=== PATIENT | male | born 1955 | race Caucasian/White ===

== ENCOUNTER 2020-08-11 01:48 | Emergency (ER) | payer BC ==
[2020-08-11] MEDS ORDERED: SODIUM CHLORIDE 0.9% 1000ML 1,000 ML IV STA (01:51)
--- NOTE | 2020-08-11 02:06 | Emergency Department Note ---
History of Present Illnes History of Present Illness Chief Complaint: Genitourinary History of Present Illness This is a 64 year old male arrives to the ED with complaints of urinary ret ention. Denies recent infectious symptoms such as fever, dysuria, rigors. Denies recent blunt back trauma or penile trauma. Denies colicky back/groin pain or history of nephro/urolithiasis. No recent sedation/analgesia, anticholinergic, opioid, TCA, sympathomimetic use. Nonsmoker. 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 Barbra MORGAN FOR PROSTATE ISSUES; PT STATES HE USUALLY HAS 700C URINE OUTPUT BY THIS TIME OF NIGHT; PT REPORTS SUPRAPUBIC PRESSURE; PT APPEARS UNCOMFORTABLE; V/S/S; BLADDER SCAN SHOWED 750CC RETAINED URINE. Historian: Patient Arrival Mode: Car Onset (how long ago): hour(s) Radiation: Reports non-radiation Severity: mild Onset quality: gradual Duration (how long): hour(s) Timing of current episode: constant Progression: worsening Context: Denies recent illness, Denies recent surgery Relieving factors: none Exacerbating factors: none Associated symptoms: Reports denies other symptoms Past Medical/Family History Physician Review I have reviewed the patient's past medical and family history. Any updates have been documented here. Past Medical History Recent Fever: No Clinical Suspicion of Infectio: No New/Unexplained Change in Ment: No Review of Systems Review of Systems Constitutional: Reports no symptoms EENTM: Reports no symptoms Cardiovascular: Reports no symptoms Respiratory: Reports no symptoms Gastrointestinal: Reports no symptoms Genitourinary: Reports as per HPI, Reports pain Musculoskeletal: Reports no symptoms Integumentary: Reports no symptoms Neurological: Reports no symptoms Psychological: Reports no symptoms Endocrine: Reports no symptoms Hematological/Lymphatic: Reports no symptoms Physical Exam Related Data Allergies: Coded Allergies: lisinopril (Verified Allergy, Unknown, 08/11/20) Triage Vital Signs Vital Signs Date Time Temp Pulse Resp B/P (MAP) Pulse Ox O2 Delivery O2 Flow Rate FiO2 08/11/20 01:48 78 20 145/105 100 Room Air Vital signs reviewed: Yes Physical Exam CONSTITUTIONAL Constitutional: Present well-developed, Present well-nourished HENT HENT: Present normocephalic, Present atraumatic, Present oropharynx clear/moist, Present nose normal HENT L/R: Present left ext ear normal, Present right ext ear normal EYES Eyes: Reports PERRL, Reports conjunctivae normal NECK Neck: Present ROM normal PULMONARY Pulmonary: Present effort normal, Present breath sounds normal CARDIOVASCULAR Cardiovascular: Present regular rhythm, Present heart sounds normal, Present capillary refill normal, Present normal rate GASTROINTESTINAL Abdominal: Present soft, Present nontender, Present bowel sounds normal GENITOURINARY Genitourinary: Present exam deferred SKIN Skin: Present warm, Present dry MUSCULOSKELETAL Musculoskeletal: Present ROM normal NEUROLOGICAL Neurological: Present alert, Present oriented x 3, Present no gross motor or sensory deficits PSYCHOLOGICAL Psychological: Present mood/affect normal, Present judgement normal Results Laboratory Lab results reviewed: Yes Imaging Imaging results reviewed: Yes Assessment & Plan Medical Decision Making MDM 64-year-old male arrives the ED with acute urinary retention. Bailey catheter changed at 1300 mL of urine output noted. Labwork reviewed no concerns of acute renal failure requiring hospital admission. All findings were discussed and relayed to Dr. Morgan patient's urologist who was in agreement with patient's discharge. Reassessment Reassessment with one day of acute urinary retention. Well appearing/nonseptic. Tolerating PO. ED Workup: UA, CBC, BMP ED Interventions: Catheter placement Patient exam and history not consistent with cauda equina, infectious etiology, constipation based retention/intraabdominal mass/AAA, trauma, nephro/urolithiasis, drug reaction, cancer. Disposition: Discharge with catheter placed to leg bag and urology follow up within 1 week. Strict return precautions and catheter care discussed. Assessment & Plan Final Impression: (1) Acute urinary retention Depart Disposition: HOME, SELF-CARE Last Vital Signs Date Time Temp Pulse Resp B/P (MAP) Pulse Ox O2 Delivery O2 Flow Rate FiO2 08/11/20 01:48 78 20 145/105 100 Room Air Medications in the ED Sodium Chloride 1,000 ml @ 0 mls/hr Q0M STAT IV ; Start 08/11/20 at 01:51; Stop 08/11/20 at 01:52 YUMIKO ANTONIO DO Aug 11, 2020 02:06
--- OUTSIDE RECORDS SUMMARY | 2020-08-11 02:14 | XMS REPORT | Continuity of Care Document ---
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 2018-12-02 00:00:00 [facility] Screening for prostate cancer Screening for prostate cancer Disease Active 2018-12-02 00:00:00 [facility] History of hepatitis C -SVR History of hepatitis C -SVR Disease Active 2016-12-31 00:00:00 [facility] Fatty liver Fatty liver Disease Active 2013-12-16 00:00:00 [facility] Obesity Obesity Disease Active 2013-12-16 00:00:00 [facility] Hemochromatosis Hemochromatosis Disease Active 2013-12-16 00:00:00 [facility] Hypertension Hypertension Disease Active 2013-12-16 00:00:00 [facility] Screening for endocrine/metabolic/immunity disorders S creening for endocrine/metabolic/immunity disorders Disease Active 2013-12-16 00:00:00 [facility] Allergies, Adverse Reactions, Alerts Allergy Name Allergy Type Status Severity Reaction(s) Onset Date Inacti ve Date Treating Clinician Comments Source Lisinopril Propensity to adverse reactions Active Othe r (See Comments) 2015-12-10 00:00:00 [facility] Social History Social Habit Start Date Stop Date Quantity Comments Source Sex Assigned At [facility] Tobacco use and exposure 2018-12-02 00:00:00 2018-12-02 00:00:00 Jason r used [facility] Alcohol intake 2017-02-08 00:00:00 2017-02-08 00:00:00 [facility] Sm[facility] Status Start Date Stop Date Source Never smoker [facility] Medications Ordered Medication Name Filled Medication Name Start Date Stop Da te Current Medication? Ordering Clinician Indication Dosage Frequency Signature (SIG) Comments Components Source tamsulosin (FLOMAX) 0.4 mg capsule 2018-11-22 00:00:00 Yes [facility] finasteride (PROSCAR) 5 mg tablet 2018-11-15 [facility]DIOVAN-HCT[facility] 80-12.5 mg per ta blet 2018-11-15 00:00:00 Yes [facility] sildenafil (VIAGRA) 100 MG tablet 2018-11-15 00:00[facility]00 [facility] 0.4 mg Cp24 24 hr capsule 2015-12-10 15:00:5 1 Yes .4mg QD Take 0.4 mg by mouth daily. [facility] valsartan (DIOVAN) 320 MG tablet 2015-12-10 15:00:51 Yes 320mg QD Take 320 mg by mouth daily. [facility] finasteride (PROSCAR) 5 mg tablet 2015-12-10 15:00:51 Yes 5mg QD Take 5 mg by mouth daily. [facility] valsartan-hydrochlorothiazide (DIOVAN-HCT) 320-25 mg per tab let 2015-12-10 15:00:51 Yes 1{tbl} QD Take 1 tablet by mouth daily. [facility] Procedures This patient has no known procedures. Plan of Care Planned Activity Planned Date Details Comments Source Future Scheduled Test 2020-05-05 00:00:00 INFLUENZA VACCINE [code = INFLUENZA VACCINE] [facility] Future Scheduled Test 2005 00:00:00 COLONOSCOPY SCREEN ING [code = COLONOSCOPY SCREENING] [facility] Future Scheduled Test 2005 00:00:00 SHINGLES VACCINES (#1) [code = SHINGLES VACCINES (#1)] [facility] Encounters Start Date/Time End Date/Time Encounter Type Admission Type Attendi [facility] Care Department Encounter ID Source 2020-08-10 14:04:38 2020-08-10 14:19:38 Office Visit Sil Betancourt [facility] [id number] Results This patient has no known results.
--- OUTSIDE RECORDS SUMMARY | 2020-08-11 02:14 | XMS REPORT | Clinical Summary ---
Author Author [facility] Organization [facility] Address Unknown Phone Unavailable Care Team Providers Care Violin Tutor Name Role Phone Prashant Valentin MD PCP Allergies No Known Active Allergies Medications End Date Status Medication Sig Dispensed Refills Start Date Active finasteride (PROSCAR) 5 0 mg tablet 9 Active tamsulosin (FLOMAX) 0.4 0 mg capsule 9 Active valsartan-hydrochlorothia 0 zide (DIOVAN-HCT) 80-12.5 9 mg per tablet Active sildenafil (VIAGRA) 100 0 MG tablet 9 Active Problems Problem Noted Date BPH with obstruction/lower urinary tract symptoms Screening for prostate cancer 12/02/2018 Surgical History Surgery Date Site/Laterality Comments TOTAL HIP ARTHROPLASTY Medical History Medical History Date Comments BPH (benign prostatic hyperplasia) Social History Date Tobacco Use Types Packs/Day Years Used Never Smoker Smokeless Tobacco: Never Used Drinks/Week oz/Week Comments Alcohol Use Yes Sex Assigned at Date Recorded Not on file Last Filed Vital Signs Not on file Plan of Treatment Health Maintenance Due Date Last Done Comments COLONOSCOPY SCREENING 2005 SHINGLES VACCINES (#1) 2005 INFLUENZA VACCINE 05/05/2020 Results Not on fileafter 08/11/2019 Insurance Type Payer Benefit Subscriber ID Effective Phone Address Plan / Dates Group PPO BCBS BCBS [id number] 2018- CHOICE Present PPO/HANANE VIERA PPO Guarantor Name Account Relation to Date of Phone Rocio kang Address Type Patient Bernardo Lawton Personal/F Self [id number] (Home) [place] [address] Advance Directives For more information, please contact: [phone] 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
--- OUTSIDE RECORDS SUMMARY | 2020-08-11 02:14 | XMS REPORT | Clinical Summary ---
Author [facility] Address Unknown Phone Unavailable Care Team Providers Care Structural Test Engineer Name Role Phone PCP Unavailable Allergies Comments Active Allergy Reactions Severity Noted Date Lisinopril Other (See 12/10/2015 Comments) Medications End Date Status Medication Sig Dispensed Refills Start Date Active tamsulosin (FLOMAX) 0.4 Take 0.4 mg 0 mg Cp24 24 hr capsule by mouth daily. Active valsartan (DIOVAN) 320 MG Take 320 mg 0 tablet by mouth daily. Active finasteride (PROSCAR) 5 Take 5 mg by 0 mg tablet mouth daily. Active valsartan-hydrochlorothia Take 1 tablet 0 zide (DIOVAN-HCT) 320-25 by mouth mg per tablet daily. Active Problems Problem Noted Date History of hepatitis C -SVR 12/31/2016 Fatty liver 12/16/2013 Obesity 12/16/2013 Hemochromatosis 12/16/2013 Hypertension 12/16/2013 Screening for endocrine/metabolic/immunity disorders 12/16/2013 Social History Date Tobacco Use Types Packs/Day Years Used Never Smoker Drinks/Week oz/Week Comments Alcohol Use No Sex Assigned at Date Recorded Not on file Last Filed Vital Signs Not on file Plan of Treatment Not on file Results Not on fileafter 08/11/2019 Insurance Type Payer Benefit Subscriber ID Effective Phone Address Plan / Dates Group PPO BLUE CROSS/BLUE SHIELD BCBS OS [id number] 2017-P [id number] [place] [address] Guarantor Name Account Relation to Date of Phone Rocio kang Address Type Patient Bernardo Lawton Jr. Personal/F Self 1955 [id number] [place] [address]
[2020-08-11 03:10] LABS: BASOPHILS # (AUTO) 0.1 (0.0-0.1); BASOPHILS % 0.5 % (0.0-1.0); EOSINOPHILS # (AUTO) 0.1 (0.0-0.4); EOSINOPHILS % 1.1 % (0.0-6.0); LYMPHOCYTES # (AUTO) 2.1 (1.0-3.2); LYMPHOCYTES % 17.9 % (18.0-39.1); MEAN CORPUSCULAR HEMOGLOBIN 30.6 pg (28-32); MEAN CORPUSCULAR HGB CONC 32.4 g/dL (31-35); MEAN CORPUSCULAR VOLUME 94.4 fL (81-99); MONOCYTES # (AUTO) 0.6 (0.2-0.8); MONOCYTES % 5.3 % (4.4-11.3); NEUTROPHILS # (AUTO) 8.8 (2.1-6.9); NEUTROPHILS % 74.4 % (38.7-80.0); PLATELET COUNT 290 x10e3/uL (140-360); RED CELL DISTRIBUTION WIDTH 15.1 % (11.7-14.4)
[2020-08-11 03:23] LABS: ALANINE AMINOTRANSFERASE 14 IU/L (0-55); ALBUMIN 3.5 g/dL (3.5-5.0); ALBUMIN/GLOBULIN RATIO 1.1 (0.8-2.0); ALKALINE PHOSPHATASE 54 IU/L (40-150); ANION GAP 13.2 mmol/L (8-16); BLOOD UREA NITROGEN 22 mg/dL (7-26); BUN/CREATININE RATIO 19 (6-25); CALCIUM 9.4 mg/dL (8.4-10.2); CARBON DIOXIDE 23 mmol/L (22-29); CHLORIDE 106 mmol/L (98-107); CREATINE KINASE 38 IU/L (30-200); CREATININE, SERUM 1.13 mg/dL (0.72-1.25); EST GLOMERULAR FILTRATION RATE > 60 ML/MIN (60-); GLUCOSE 102 mg/dL (74-118); POTASSIUM 4.2 mmol/L (3.5-5.1); SODIUM 138 mmol/L (136-145)
[2020-08-11 03:40] LABS: BILIRUBIN,URINE NEGATIVE (NEGATIVE); CLARITY,URINE CLOUDY (CLEAR); COLOR,URINE YELLOW (YELLOW); KETONES,URINE NEGATIVE (NEGATIVE); LEUKOCYTE ESTERASE ,URINE 1+ (NEGATIVE); NITRITE,URINE POSITIVE (NEGATIVE); PROTEIN,URINE DIPSTICK NEGATIVE (NEGATIVE); URINE UROBILINOGEN 0.2 mg/dL (0.2 - 1)
[2020-08-11] MEDS ORDERED: SODIUM CHLORIDE 0.9% 50ML 50 ML ONE (03:49)
[2020-08-11] MEDS ORDERED: IOPAMIDOL 370 MG/ML 200 ML INFUS..BTL INJ ONE (03:49)
[2020-08-11 04:08] LABS: BACTERIA,URINE MANY /HPF; EPITHELIAL CELLS,URINE FEW /LPF; WBC,URINE (MAN) >50 /HPF (0-5)
[2020-08-11 04:09] LABS: RBC,URINE 21-50 /HPF (0-5)
[2020-08-11 04:41] VITALS: BP 124/88
== END 2020-08-11 04:36 | disposition home or self-care (01) ==
LOC: ER 02:12
DX: R33.9 Retention of urine, unspecified (principal); I10 Essential (primary) hypertension; K21.9 Gastro-esophageal reflux disease without esophagitis
CPT/HCPCS: 36415; 51702; 80053; 81001; 82550; 82553; 84484; 85025; 99284; Q9967; 51700

== ENCOUNTER → 2020-11-16 | Day surgery (SDC) | payer BC ==
[2020-11-14 15:09] LABS: BASOPHILS # (AUTO) 0.1 (0.0-0.1); BASOPHILS % 0.9 % (0.0-1.0); EOSINOPHILS # (AUTO) 0.1 (0.0-0.4); EOSINOPHILS % 1.8 % (0.0-6.0); HEMATOCRIT 37.5 % (38.2-49.6); HEMOGLOBIN 12.5 g/dL (14.0-18.0); LYMPHOCYTES # (AUTO) 2.1 (1.0-3.2); LYMPHOCYTES % 31.2 % (18.0-39.1); MEAN CORPUSCULAR HEMOGLOBIN 33.4 pg (28-32); MEAN CORPUSCULAR HGB CONC 33.3 g/dL (31-35); MEAN CORPUSCULAR VOLUME 100.3 fL (81-99); MONOCYTES # (AUTO) 0.6 (0.2-0.8); MONOCYTES % 8.9 % (4.4-11.3); NEUTROPHILS # (AUTO) 3.9 (2.1-6.9); NEUTROPHILS % 56.9 % (38.7-80.0); PLATELET COUNT 240 x10e3/uL (140-360); RED BLOOD COUNT 3.74 x10e6/uL (4.3-5.7); RED CELL DISTRIBUTION WIDTH 13.1 % (11.7-14.4)
[2020-11-14 15:24] LABS: ANION GAP 14.3 mmol/L (8-16); CALCIUM 9.2 mg/dL (8.4-10.2); CREATININE, SERUM 1.29 mg/dL (0.72-1.25); POTASSIUM 4.3 mmol/L (3.5-5.1)
[~2020-11-16] MED LIST: ANTIBIOTIC PO; B&O 60MG R/S 60 MG SUPP PR ONE; BUPIVACAINE 0.5%/EPI 30 ML SDV INJ ONE; CEFTRIAXONE SOD 1 GM VIAL ONE; FENTANYL CITRATE/PF 100MCG/2 ML INJ ONE; FINASTERIDE5 MG PO; HYDROCODON-ACE1 EA12 PO; IOPAMIDOL 300MG/ML 50ML INFUS..BTL IV ONE; LOVENOX30 MG/0.3 SC; LYRICA25 MG PO; METOPROLOL SUCC25 MG PO; SODIUM CHLORIDE 0.9% 50ML 50 ML ONE; VALSARTAN-HCTZ1 EACH PO
[2020-11-16 16:50] VITALS: BP 140/74
== END | disposition home or self-care (01) ==
LOC: OR 12:47
PROVIDERS: ATTEND Urology
DX: N39.0 Urinary tract infection, site not specified (principal); N40.1 Benign prostatic hyperplasia with lower urinary tract symptoms; R33.8 Other retention of urine; N32.3 Diverticulum of bladder; N42.89 Other specified disorders of prostate; N32.89 Other specified disorders of bladder; N31.9 Neuromuscular dysfunction of bladder, unspecified; R39.14 Feeling of incomplete bladder emptying; R35.1 Nocturia; N39.41 Urge incontinence; G47.33 Obstructive sleep apnea (adult) (pediatric); C02.9 Malignant neoplasm of tongue, unspecified; I10 Essential (primary) hypertension; E11.9 Type 2 diabetes mellitus without complications; K75.9 Inflammatory liver disease, unspecified; K28.9 Gastrojejunal ulcer, unspecified as acute or chronic, without hemorrhage or perforation; Z01.810 Encounter for preprocedural cardiovascular examination; Z01.812 Encounter for preprocedural laboratory examination; Z01.818 Encounter for other preprocedural examination; Z20.822 Contact with and (suspected) exposure to COVID-19; Z79.02 Long term (current) use of antithrombotics/antiplatelets; Z68.31 Body mass index [BMI] 31.0-31.9, adult; Z86.718 Personal history of other venous thrombosis and embolism
CPT/HCPCS: 36415; 51040; 52005; 71046; 74420; 80048; 85025; 93005; J0696; J3010; Q9967; U0002

== ENCOUNTER 2024-07-02 08:10 | Emergency (ER) | payer BC ==
[~2024-07-02] VITALS: Ht 185.4 cm; Wt 122.5 kg
[~2024-07-02 08:10] MED LIST changes: -B&O 60MG R/S 60 MG SUPP PR ONE; -BUPIVACAINE 0.5%/EPI 30 ML SDV INJ ONE; -CEFTRIAXONE SOD 1 GM VIAL ONE; -FENTANYL CITRATE/PF 100MCG/2 ML INJ ONE; -IOPAMIDOL 300MG/ML 50ML INFUS..BTL IV ONE; -SODIUM CHLORIDE 0.9% 50ML 50 ML ONE
[2024-07-02] MEDS ORDERED: OXYBUTYNIN CHLORIDE 5 MG TAB PO STA (08:23)
[2024-07-02 08:31] LABS: BILIRUBIN,URINE NEGATIVE (NEGATIVE); CLARITY,URINE SL CLOUDY (CLEAR); COLOR,URINE YELLOW (YELLOW); GLUCOSE, URINE 1+ (NEGATIVE); KETONES,URINE NEGATIVE (NEGATIVE); LEUKOCYTE ESTERASE ,URINE LARGE (NEGATIVE); NITRITE,URINE POSITIVE (NEGATIVE); PH,URINE 7 (5 - 7); PROTEIN,URINE DIPSTICK TRACE (NEGATIVE); URINE UROBILINOGEN 0.2 mg/dL (0.2 - 1)
[2024-07-02 08:38] LABS: BACTERIA,URINE MANY /HPF; EPITHELIAL CELLS,URINE RARE /LPF; WBC,URINE (MAN) >50 /HPF (0-5)
[2024-07-02 10:59] VITALS: PULSE 79; RESP 16; TEMP 98.1; O2SAT 99
[2024-07-02] MEDS ORDERED: VESICARE10 MG PO (11:07)
[2024-07-02] MEDS ORDERED: CEFUROXIME250 MG PO (11:07)
== END 2024-07-02 11:26 | disposition home or self-care (01) ==
LOC: ER 08:14
DX: Z46.6 Encounter for fitting and adjustment of urinary device (principal); N39.0 Urinary tract infection, site not specified; N32.89 Other specified disorders of bladder; I10 Essential (primary) hypertension; K21.9 Gastro-esophageal reflux disease without esophagitis; F41.9 Anxiety disorder, unspecified
CPT/HCPCS: 81001; 87086; 87186; 93005; 99284